=== PATIENT | male | born 1960 | race Caucasian/White ===

== ENCOUNTER 2019-01-03 07:53 | Day surgery (SDC) | payer BC ==
[2019-01-03] MEDS ORDERED: Lidocaine 1% 30 ML SDV INJECT ONE (07:54)
[2019-01-03] MEDS ORDERED: Propofol 200 MG/20 ML SDV IV ONE (07:54)
[2019-01-03] MEDS ORDERED: Lactated Ringers 1,000 ML IV SCH (08:15)
[2019-01-03] MEDS ORDERED: Simethicone Drops 40 MG/0.6 ML 30 ML Bottle ONE (09:15)
--- NOTE | 2019-01-03 09:37 | PCM.OPNOTE ---
- General Post-Op/Procedure Note Date of Surgery/Procedure: 01/03/19 Operative Procedure(s): c scope Findings: occasional diverticuli Pre Op Diagnosis: screening Post-Op Diagnosis: diverticulosis Anesthesia Technique: MAC Primary Surgeon: Supa Alston Anesthesia Provider: Mathieu Goss Complications: None Condition: Good Free Text/Narrative:: see dictation
--- NOTE | 2019-01-03 14:35 | OR ---
DATE OF OPERATION: 01/03/2019 SURGEON: Supa Alston MD PROCEDURE PERFORMED: Colonoscopy. PREOPERATIVE DIAGNOSIS: Screening for colon cancer. POSTOPERATIVE DIAGNOSIS: Normal colon. INDICATIONS FOR PROCEDURE: This is a 58-year-old white male who presents for followup colonoscopy. PROCEDURE IN DETAIL: After an excellent IV sedation was administered, digital rectal exam was performed. No marked abnormality was noted. Flexible colonoscope was inserted and advanced to the cecum. The prep was excellent. The following findings were noted. Ascending colon, unremarkable. Transverse colon, unremarkable. Descending colon, unremarkable. Sigmoid and rectum, unremarkable. Colon was deflated, scope was removed. The patient tolerated the procedure well and was taken to recovery in good condition. Repeat scope in 10 years. /[id number] /MODL
== END 2019-01-03 10:09 | disposition home or self-care (01) ==
LOC: FB.SDS 07:53
PROVIDERS: ATTEND Surgery
DX: Z12.11 Encounter for screening for malignant neoplasm of colon (principal); Z88.2 Allergy status to sulfonamides; I10 Essential (primary) hypertension; Z79.899 Other long term (current) drug therapy
CPT/HCPCS: 45378; 93005; A9270; J2001; J2704; J7120

== ENCOUNTER 2023-01-18 14:49 | Emergency (ER) | payer BC, OTHER ==
[2023-01-18 15:35] LABS: ESTIMATED GFR 76 mL/min (>60)
== END 2023-01-18 16:18 | disposition home or self-care (01) ==
LOC: FB.ED 14:49
DX: R00.2 Palpitations (principal); I10 Essential (primary) hypertension; Z79.82 Long term (current) use of aspirin; Z79.899 Other long term (current) drug therapy; Z88.2 Allergy status to sulfonamides
CPT/HCPCS: 36415; 80053; 81001; 84443; 84484; 85025; 85379; 85651; 93005; 99285